=== PATIENT | female | born 1955 | race Two or more races ===

== ENCOUNTER → 2022-06-23 | Outpatient (CLI) | payer OTHER | LOC: M RAD 11:03 | PROVIDERS: ATTEND Physician Assistant | DX: S82.125A Nondisplaced fracture of lateral condyle of left tibia, initial encounter for closed fracture (principal); M25.462 Effusion, left knee; M79.89 Other specified soft tissue disorders; X58.XXXA Exposure to other specified factors, initial encounter; Y92.9 Unspecified place or not applicable; Y93.9 Activity, unspecified; Y99.9 Unspecified external cause status ==